=== PATIENT | female | born 2000 | race Asian ===

== ENCOUNTER → 2025-06-22 | Outpatient (CLI) | payer OTHER, SELFPAY ==
[2025-06-22 12:42] LABS: Beta HCG,Quantitative < 1 mIU/mL (<5.0)
[2025-06-22 13:03] LABS: HCG,Qualitative Serum Negative
== END | disposition home or self-care (01) ==
PROVIDERS: PCP Nurse Practitioner Family; Referring Provider Nurse Practitioner Family; Visit Provider Nurse Practitioner Family
DX: N92.1 Excessive and frequent menstruation with irregular cycle (principal)
CPT/HCPCS: 36415; 84702; 84703

== ENCOUNTER → 2025-06-29 | Outpatient (CLI) | payer OTHER, SELFPAY ==
[2025-06-29 08:45] LABS: T4 (Thyroxine) 6.8 mcg/dL (4.5-10.9)
[2025-06-29 08:50] LABS: Free T4 (Free Thyroxine) 1.24 ng/dL (0.89-1.76); Thyroid Stimulating Hormone 2.42 uIU/mL (0.55-4.78)
[2025-07-01 17:53] LABS: Thyroglobulin Antibodies <1 IU/mL (< OR = 1)
[2025-07-02 06:27] LABS: T3,Total* 117 ng/dL (76-181); Thyroglobulin 5.3 ng/mL; Thyroid Peroxidase Antibodies* 1 IU/mL (<9)
[2025-07-06 07:04] LABS: Helicobacter pylori Ag, Stool* NOT DETECTED (NOT DETECTED)
== END | disposition home or self-care (01) ==
PROVIDERS: PCP Nurse Practitioner Family; Referring Provider Nurse Practitioner Family; Visit Provider Nurse Practitioner Family
DX: E03.9 Hypothyroidism, unspecified (principal); R10.9 Unspecified abdominal pain; R53.83 Other fatigue
CPT/HCPCS: 36415; 84432; 84436; 84439; 84443; 84480; 86376; 86800; 87338

== ENCOUNTER → 2025-09-04 | Outpatient (CLI) | payer OTHER, SELFPAY ==
[2025-09-04 12:27] LABS: HCG,Qualitative Serum Positive
[2025-09-04 12:35] LABS: Beta HCG,Quantitative 1369 mIU/mL (<5.0)
== END | disposition home or self-care (01) ==
LOC: COPL 11:22
PROVIDERS: PCP Family Medicine; Referring Provider Nurse Practitioner Family; Visit Provider Nurse Practitioner Family
DX: N92.1 Excessive and frequent menstruation with irregular cycle (principal)
CPT/HCPCS: 36415; 84702; 84703